=== PATIENT | female | born 1985 | race Caucasian/White ===

== ENCOUNTER 2020-07-28 16:19 | Inpatient (IN) | payer OTHER ==
[~2020-07-28] VITALS: Ht 172.7 cm; Wt 128.5 kg
[2020-07-28] MEDS ORDERED: HYDR50CA9 PO (16:45)
[2020-07-28] MEDS ORDERED: DULO-8 PO (16:45)
[2020-07-28] MEDS ORDERED: DOXY150T5 PO (16:45)
[2020-07-28] MEDS ORDERED: DULO30CA96 PO (16:45)
[2020-07-28] MEDS ORDERED: IBUP-2071 PO (16:45)
[2020-07-28 17:03] LABS: BASOPHILS % (AUTO) 0.9 % (0.0-2.0); EOSINOPHILS % (AUTO) 1.2 % (1.0-6.0); HEMATOCRIT 38.1 % (36-46); HEMOGLOBIN 12.9 g/dL (12.0-16.0); LYMPHOCYTES # (AUTO) 1.6 K/uL (1.0-4.8); LYMPHOCYTES % (AUTO) 22.8 % (22.0-44.0); MEAN CORPUSCULAR HEMOGLOBIN 28.9 pg (26.0-34.0); MEAN CORPUSCULAR HGB CONC 33.8 G/dL (31.0-37.0); MEAN CORPUSCULAR VOLUME 86 fL (80-100); MONOCYTES # (AUTO) 0.6 K/uL (0.1-1.0); MONOCYTES % (AUTO) 8.2 % (2.0-9.0); NEUTROPHILS # (AUTO) 4.7 K/uL (1.8-7.7); NEUTROPHILS % (AUTO) 66.9 % (40.0-70.0); PLATELET COUNT (AUTO) 285 K/uL (150-450); RED BLOOD CELL COUNT(AUTO) 4.46 MIL/uL (4.00-5.20); RED CELL DISTRIBUTION WIDTH 13.6 % (11.5-14.5)
[2020-07-28 17:11] LABS: ANION GAP 11 mmol/L (8-16); CALCIUM, TOTAL 8.6 mg/dL (8.8-10.5); CARBON DIOXIDE 25 mmol/L (22-29); CHLORIDE 102 mmol/L (98-107); CREATININE 0.77 mg/dL (0.60-1.30); GLOMERULAR FILTR. RATE CALC > 60 mL/min (>60); GLUCOSE,RANDOM 93 mg/dL (70-110); POTASSIUM 3.9 mmol/L (3.5-5.1); SODIUM SERUM 138 mmol/L (136-145); UREA NITROGEN, BLOOD 18 mg/dL (7-18)
[2020-07-28] MEDS ORDERED: SODIUM CHLORIDE 0.9% 1,000 ML IV ONE ×2 (17:15→19:30)
[2020-07-28] MEDS ORDERED: MORPHINE SULFATE 4 MG/ML SYRINGE IVP ONE ×3 (17:15→19:30)
[2020-07-28 17:18] LABS: ALANINE AMINOTRANSFERASE 15 U/L (12-78); ALBUMIN 3.5 g/dL (3.4-5.0); ALKALINE PHOSPHATASE 83 U/L (46-116); ASPARTATE AMINOTRANSFERASE 21 U/L (15-37); BILIRUBIN,TOTAL 0.3 mg/dL (0.1-1.0); TOTAL PROTEIN, SERUM 6.7 g/dL (6.4-8.2)
[2020-07-28] MEDS ORDERED: IOHEXOL 350 MG/ML 100 ML VIAL ONE (17:51)
[2020-07-28] MEDS ORDERED: SODIUM CHLORIDE 0.9% 100 ML ONE (17:51)
[2020-07-28 17:53] LABS: HCG,QUANTITATIVE < 1 mIU/mL (0-6)
[2020-07-28] MEDS ORDERED: ONDANSETRON HCL 4 MG/2 ML VIAL IVP PRN (20:00)
[2020-07-28] MEDS ORDERED: 0.9% SODIUM CHLORIDE 10 ML SYRINGE IVP PRN (20:00)
[2020-07-28] MEDS ORDERED: ACETAMINOPHEN 325 MG TABLET PO PRN ×2 (20:00→20:30)
[2020-07-28] MEDS ORDERED: DEXTROSE 5%-0.45% SODIUM CHL 1,000 ML IV ONE (20:30)
[2020-07-28] MEDS: DOCUSATE SODIUM 100 MG CAPSULE PO SCH (20:37)
[2020-07-28] MEDS: ONDANSETRON HCL 4 MG/2 ML VIAL IVP PRN (20:38)
[2020-07-28] MEDS ORDERED: HYDROmorphone 2 MG/ML VIAL IVP ONE (21:15)
[2020-07-28 21:16] LABS: COVID AG,FIA SOURCE NASOPHARYNGEAL
[2020-07-28 22:35] VITALS: BP 134/92
[2020-07-28] MEDS: DOXYCYCLINE HYCLATE 100 MG TABLET PO SCH (22:55)
[2020-07-28] MEDS: MORPHINE SULFATE 2 MG/ML SYRINGE IVP PRN (22:56)
[2020-07-29] MEDS: MORPHINE SULFATE 2 MG/ML SYRINGE IVP PRN ×3 (04:07→20:05)
[2020-07-29 05:40] VITALS: BP 96/56
[2020-07-29 07:24] LABS: APPEARANCE,URINE CLEAR (CLEAR); BILIRUBIN,URINE NEGATIVE (NEGATIVE); GLUCOSE, URINE (UA) NEGATIVE (NEGATIVE); KETONES,URINE NEGATIVE (NEGATIVE); LEUKOCYTE ESTERASE ,URINE NEGATIVE (NEGATIVE); NITRATE,URINE NEGATIVE (NEGATIVE); OCCULT BLOOD,URINE NEGATIVE (NEGATIVE); PH,URINE 5.5 (5.0-8.0); PROTEIN,URINE NEGATIVE (NEGATIVE); UROBILINOGEN,URINE 0.2 mg/dL (<=1.0)
[2020-07-29 08:08] VITALS: BP 115/64
[2020-07-29] MEDS: DOCUSATE SODIUM 100 MG CAPSULE PO SCH ×2 (08:48→20:05)
[2020-07-29] MEDS: DOXYCYCLINE HYCLATE 100 MG TABLET PO SCH ×2 (08:48→20:05)
[2020-07-29] MEDS ORDERED: RINGERS SOLUTION,LACTATED 1,000 ML IV ONE ×2 (09:19→09:30)
[2020-07-29] MEDS ORDERED: SODIUM CHLORIDE 0.9% 1,000 ML ONE (09:27)
[2020-07-29] MEDS ORDERED: BUPIVACAINE 0.25%/EPI 1:200,000/PF 10 ML VIAL ONE (09:27)
[2020-07-29] MEDS ORDERED: SUGAMMADEX SODIUM 200 MG/2 ML VIAL IVP ONE (09:43)
[2020-07-29] MEDS ORDERED: ACETAMINOPHEN 1000 MG/ISO-OSM 100 ML IV ONE (09:43)
[2020-07-29] MEDS ORDERED: MEPERIDINE-PF 25 MG/ML VIAL IVP PRN (10:30)
[2020-07-29] MEDS ORDERED: FentaNYL CITRATE PF 100 MCG/2 ML VIAL IVP PRN (10:30)
[2020-07-29] MEDS ORDERED: HYDROmorphone 2 MG/ML VIAL IVP PRN (10:30)
[2020-07-29] MEDS ORDERED: HYDROCODONE/ACETAMINOPHEN 5-325 MG TABLET PO PRN (11:45)
[2020-07-29] MEDS ORDERED: HYDROmorphone 2 MG/ML VIAL ONE (12:06)
[2020-07-29 13:04] VITALS: BP 110/61
[2020-07-29] MEDS: HYDROCODONE/ACETAMINOPHEN 5-325 MG TABLET PO PRN ×2 (16:49→22:34)
[2020-07-29 20:00] VITALS: BP 111/65
[2020-07-30] MEDS: MORPHINE SULFATE 2 MG/ML SYRINGE IVP PRN ×2 (02:43→10:25)
[2020-07-30 05:17] VITALS: BP 108/66
[2020-07-30] MEDS: HYDROCODONE/ACETAMINOPHEN 5-325 MG TABLET PO PRN ×2 (05:27→15:18)
[2020-07-30] MEDS ORDERED: LIDOCAINE/PF 2% 5 ML VIAL IM ONE (05:28)
[2020-07-30] MEDS ORDERED: ROCURONIUM BROMIDE 10 MG/ML 5 ML VIAL IVP ONE (05:28)
[2020-07-30] MEDS ORDERED: PROPOFOL 1% 20 ML VIAL IVP ONE (05:28)
[2020-07-30] MEDS ORDERED: FentaNYL CITRATE PF 100 MCG/2 ML VIAL IVP ONE (05:28)
[2020-07-30] MEDS ORDERED: SUCCINYLCHOLINE CHLORIDE 20 MG/ML 10 ML VIAL IVP ONE (05:28)
[2020-07-30] MEDS ORDERED: MIDAZOLAM HCL 2 MG/2 ML VIAL IVP ONE (05:28)
[2020-07-30] MEDS ORDERED: ONDANSETRON HCL 4 MG/2 ML VIAL IVP ONE (05:28)
[2020-07-30] MEDS ORDERED: DEXAMETHASONE SOD PHOS 4 MG/ML VIAL IVP ONE (05:28)
[2020-07-30] MEDS ORDERED: KETOROLAC TROMETHAMINE 60 MG/2 ML VIAL IM ONE (05:28)
[2020-07-30] MEDS: OXYGEN THERAPY IH SCH ×3 (08:00→20:00)
[2020-07-30 08:10] VITALS: BP 93/54
[2020-07-30] MEDS: DOCUSATE SODIUM 100 MG CAPSULE PO SCH ×2 (08:47→20:42)
[2020-07-30 10:28] VITALS: BP 105/59
[2020-07-30] MEDS ORDERED: TRAM50TA4 PO (14:54)
[2020-07-30 20:05] VITALS: BP 117/65
[2020-07-30] MEDS: TraMADol HCL 50 MG TABLET PO PRN (20:44)
[2020-07-31] MEDS: TraMADol HCL 50 MG TABLET PO PRN ×4 (02:07→22:29)
[2020-07-31 04:04] VITALS: BP 110/62
[2020-07-31 08:01] VITALS: BP 106/58
[2020-07-31] MEDS: DOCUSATE SODIUM 100 MG CAPSULE PO SCH ×2 (08:50→19:58)
[2020-07-31 19:45] VITALS: BP 112/67
[2020-07-31] MEDS: ONDANSETRON HCL 4 MG/2 ML VIAL IVP PRN (19:58)
[2020-08-01 05:29] VITALS: BP 107/68
[2020-08-01 08:13] VITALS: BP 105/51
[2020-08-01] MEDS: DOCUSATE SODIUM 100 MG CAPSULE PO SCH (08:53)
[2020-08-01] MEDS: TraMADol HCL 50 MG TABLET PO PRN (08:53)
== END 2020-08-01 11:16 | DRG 354 ==
LOC: EMS 16:19 → 6S 21:26
PROVIDERS: ADMIT Internal Medicine; ATTEND Internal Medicine
PROC: 0WUF4JZ Supplement Abdominal Wall with Synthetic Substitute, Percutaneous Endoscopic Approach (ICD-10-PCS; principal; 2020-07-28)
DX: K43.0 Incisional hernia with obstruction, without gangrene (principal); Z68.41 Body mass index [BMI] 40.0-44.9, adult; I50.9 Heart failure, unspecified; K59.00 Constipation, unspecified; E66.01 Morbid (severe) obesity due to excess calories; Z20.822 Contact with and (suspected) exposure to COVID-19; K74.60 Unspecified cirrhosis of liver; Z98.84 Bariatric surgery status; Z79.899 Other long term (current) drug therapy; Z98.891 History of uterine scar from previous surgery
CPT/HCPCS: 74177; 80053; 81003; 84702; 85025; 87081; 99291; A9575; J0131; J0330; J0690; J1100; J1170; J1885; J2250; J2270; J2405; J2704; J3010; J3490; J7030; J7050; J7120